=== PATIENT | male | born 1965 | race Caucasian/White ===

== ENCOUNTER 2019-09-03 09:01 | Day surgery (SDC) | payer BC ==
[~2019-09-03] VITALS: Ht 172.7 cm; Wt 79.5 kg
[2019-09-03 10:59] VITALS: BP 140/89
[2019-09-03] MEDS ORDERED: ISOPROTERENOL 0.2MG/ML, 5ML ONE (14:17)
== END 2019-09-03 15:17 | disposition home or self-care (01) ==
LOC: CACL 09:01 → EDSTATUS 10:00 → CACL 15:17
PROVIDERS: ATTEND Internal Medicine Cardiovascular Disease
DX: R55 Syncope and collapse (principal); I34.0 Nonrheumatic mitral (valve) insufficiency; I10 Essential (primary) hypertension; Z98.890 Other specified postprocedural states
CPT/HCPCS: 93306; 93356; 93660